=== PATIENT | male | born 1985 ===

== ENCOUNTER 2024-01-08 12:00 | Outpatient (REF) | payer OTHER, SELFPAY | END 2024-01-08 12:01 | disposition home or self-care (01) | LOC: HO.HOSX 12:00 | PROVIDERS: Visit Provider Physician Assistant | DX: Z13.89 Encounter for screening for other disorder (principal) ==

== ENCOUNTER 2024-11-05 10:10 | Outpatient (REF) | payer MEDICAID, SELFPAY | END 2024-11-05 10:11 | disposition home or self-care (01) | LOC: HO.HOSX 10:10 | PROVIDERS: Visit Provider Orthopaedic Surgery | DX: Z13.89 Encounter for screening for other disorder (principal) ==